=== PATIENT | male | born 1930 | race Caucasian/White ===

== ENCOUNTER 2016-11-29 13:20 | Outpatient (CLI) | payer MEDICARE | END 2016-11-29 23:59 | DX: I10 Essential (primary) hypertension (principal); E78.5 Hyperlipidemia, unspecified; R63.0 Anorexia; F03.90 Unspecified dementia, unspecified severity, without behavioral disturbance, psychotic disturbance, mood disturbance, and anxiety; I48.91 Unspecified atrial fibrillation; I62.00 Nontraumatic subdural hemorrhage, unspecified ==

== ENCOUNTER 2017-01-04 | Outpatient (CLI) | payer MEDICARE, OTHER | END 2017-01-04 11:38 | disposition critical access hospital (66) | DX: R09.89 Other specified symptoms and signs involving the circulatory and respiratory systems (principal) | CPT/HCPCS: A0425; A0429 ==

== ENCOUNTER 2017-01-04 11:56 | Inpatient (IN) | payer MEDICARE, OTHER ==
[2017-01-04] MEDS ORDERED: POTASSIUM CHLOR 10 MEQ/100 ML 100 ML IV ONE ×2 (13:13→13:37)
[2017-01-04] MEDS ORDERED: LEVOFLOXACIN 250 MG/50 ML IV ONE (13:37)
[2017-01-04] MEDS ORDERED: MIN OIL/DIMETHICON/COCONUT OIL 92 GM TUBE TOP ONE (13:38)
[2017-01-04] MEDS ORDERED: LEVOFLOXACIN 500 MG/100 ML IV ONE (13:39)
[2017-01-04] MEDS ORDERED: SODIUM CHLORIDE FLUSH 0.9% 10 ML SYRINGE IVP PRN (14:04)
[2017-01-04] MEDS ORDERED: IPRATROPIUM/ALBUTEROL 3 ML NEB INH PRN (14:04)
[2017-01-04] MEDS ORDERED: ACETAMINOPHEN 325 MG TABLET PO PRN (14:04)
[2017-01-04] MEDS ORDERED: D5.45NS W/20 MEQ KCL 1,000 ML IV SCH (15:00)
[2017-01-04] MEDS ORDERED: SODIUM CHLORIDE 0.9% 1,000 ML IV ONE (15:24)
[2017-01-04] MEDS ORDERED: PIPERACILLIN/TAZOBACTAM 4.5 GM in SODIUM CHLORIDE 0.9% MINIBAG 100 ML IV ONE (16:00)
[2017-01-04] MEDS: PANTOPRAZOLE 40 MG TABLET PO SCH (16:22)
[2017-01-04] MEDS: SACCHAROMYCES BOULARDII 250 MG CAPSULE PO SCH (16:22)
[2017-01-04] MEDS: SODIUM CHLORIDE 0.45% 1,000 ML IV SCH (16:23)
[2017-01-04] MEDS: POTASSIUM CHLOR 10 MEQ/100 ML 100 ML IV SCH ×4 (16:23→21:13)
[2017-01-04] MEDS: AMPICILLIN/SULBACTAM 3 GM in SODIUM CHLORIDE 0.9% MINIBAG 100 ML IV SCH ×2 (16:23→18:52)
[2017-01-04] MEDS ORDERED: POTASSIUM CHLOR 10 MEQ/100 ML 100 ML IV SCH (21:00)
[2017-01-04] MEDS: PIPERACILLIN/TAZOBACTAM 4.5 GM in SODIUM CHLORIDE 0.9% MINIBAG 100 ML IV SCH (21:12)
[2017-01-04] MEDS: SODIUM CHLORIDE FLUSH 0.9% 10 ML SYRINGE IVP SCH (21:13)
[2017-01-05] MEDS: AMPICILLIN/SULBACTAM 3 GM in SODIUM CHLORIDE 0.9% MINIBAG 100 ML IV SCH ×5 (01:19→23:14)
[2017-01-05] MEDS: PIPERACILLIN/TAZOBACTAM 4.5 GM in SODIUM CHLORIDE 0.9% MINIBAG 100 ML IV SCH ×3 (04:24→20:39)
[2017-01-05] MEDS: PANTOPRAZOLE 40 MG TABLET PO SCH (06:42)
[2017-01-05] MEDS: SODIUM CHLORIDE FLUSH 0.9% 10 ML SYRINGE IVP SCH ×3 (06:42→23:14)
[2017-01-05] MEDS: POTASSIUM CHLOR 10 MEQ/100 ML 100 ML IV SCH ×6 (08:59→14:39)
[2017-01-05] MEDS: POLYETHYLENE GLYCOL 3350 17 GM PACKET PO SCH (11:08)
[2017-01-05] MEDS: SACCHAROMYCES BOULARDII 250 MG CAPSULE PO SCH ×2 (11:08→17:57)
[2017-01-05] MEDS: ENOXAPARIN 40 MG/0.4 ML SYRINGE SUBQ SCH (16:16)
[2017-01-05] MEDS: SODIUM CHLORIDE 0.45% 1,000 ML IV SCH (23:17)
[2017-01-06] MEDS: SODIUM CHLORIDE 0.45% 1,000 ML IV SCH ×2 (00:27→16:06)
[2017-01-06] MEDS: AMPICILLIN/SULBACTAM 3 GM in SODIUM CHLORIDE 0.9% MINIBAG 100 ML IV SCH ×4 (05:30→23:50)
[2017-01-06] MEDS: PIPERACILLIN/TAZOBACTAM 4.5 GM in SODIUM CHLORIDE 0.9% MINIBAG 100 ML IV SCH ×3 (05:35→20:00)
[2017-01-06] MEDS: SODIUM CHLORIDE FLUSH 0.9% 10 ML SYRINGE IVP SCH ×3 (05:39→21:52)
[2017-01-06] MEDS: PANTOPRAZOLE 40 MG TABLET PO SCH (05:40)
[2017-01-06] MEDS: SACCHAROMYCES BOULARDII 250 MG CAPSULE PO SCH ×2 (08:34→17:49)
[2017-01-06] MEDS: POLYETHYLENE GLYCOL 3350 17 GM PACKET PO SCH (08:34)
[2017-01-06] MEDS: ENOXAPARIN 40 MG/0.4 ML SYRINGE SUBQ SCH (12:08)
[2017-01-07] MEDS: PIPERACILLIN/TAZOBACTAM 4.5 GM in SODIUM CHLORIDE 0.9% MINIBAG 100 ML IV SCH ×2 (03:47→11:30)
[2017-01-07] MEDS: SODIUM CHLORIDE FLUSH 0.9% 10 ML SYRINGE IVP SCH ×2 (05:39→11:36)
[2017-01-07] MEDS: AMPICILLIN/SULBACTAM 3 GM in SODIUM CHLORIDE 0.9% MINIBAG 100 ML IV SCH ×2 (05:40→11:30)
[2017-01-07] MEDS: PANTOPRAZOLE 40 MG TABLET PO SCH (06:10)
[2017-01-07] MEDS: SODIUM CHLORIDE 0.45% 1,000 ML IV SCH (06:59)
[2017-01-07] MEDS: ENOXAPARIN 40 MG/0.4 ML SYRINGE SUBQ SCH (07:46)
[2017-01-07] MEDS: SACCHAROMYCES BOULARDII 250 MG CAPSULE PO SCH (07:46)
[2017-01-07] MEDS: POLYETHYLENE GLYCOL 3350 17 GM PACKET PO SCH (07:46)
[2017-01-07] MEDS ORDERED: DEXTROSE 5% 1,000 ML IV SCH (08:00)
[2017-01-07] MEDS ORDERED: A & D OINTMENT 5 GM PACKET TOP ONE (11:27)
== END 2017-01-07 15:25 | disposition hospice, home (50) | DRG 194 ==
DX: J18.9 Pneumonia, unspecified organism (principal); R09.02 Hypoxemia; I10 Essential (primary) hypertension; E87.0 Hyperosmolality and hypernatremia; N17.9 Acute kidney failure, unspecified; E78.00 Pure hypercholesterolemia, unspecified; E83.52 Hypercalcemia; E87.6 Hypokalemia; N40.0 Benign prostatic hyperplasia without lower urinary tract symptoms; F03.90 Unspecified dementia, unspecified severity, without behavioral disturbance, psychotic disturbance, mood disturbance, and anxiety; I12.9 Hypertensive chronic kidney disease with stage 1 through stage 4 chronic kidney disease, or unspecified chronic kidney disease; N18.9 Chronic kidney disease, unspecified; E86.0 Dehydration; Z66 Do not resuscitate; M10.9 Gout, unspecified

== ENCOUNTER 2017-01-07 15:23 | Outpatient (CLI) | payer MEDICARE, OTHER | END 2017-01-07 15:24 | disposition home or self-care (01) | DX: J18.9 Pneumonia, unspecified organism (principal); Z74.01 Bed confinement status | CPT/HCPCS: A0425; A0428 ==